=== PATIENT | female | born 1990 | race Caucasian/White ===

== ENCOUNTER 2024-04-10 06:18 | Day surgery (SDC) | payer OTHER ==
[~2024-04-10] VITALS: Ht 152.4 cm; Wt 50.3 kg
[2024-04-10] MEDS ORDERED: MIDAZOLAM 2 MG/2 ML VIAL ONE (07:34)
[2024-04-10] MEDS ORDERED: fentaNYL citrate 0.05 MG/ML VIAL ONE (07:34)
[2024-04-10] MEDS ORDERED: SIMETHICONE 40 MG/0.6 ML ONE (09:36)
[2024-04-10] MEDS ORDERED: SEVOFLURANE 250 ML BTL INH ONE (09:42)
[2024-04-10] MEDS ORDERED: PROPOFOL 200 MG/20 ML VIAL IV ONE (09:42)
[2024-04-10] MEDS ORDERED: ONDANSETRON 4 MG/2 ML VIAL ONE (09:42)
== END 2024-04-10 11:50 | disposition home or self-care (01) ==
LOC: MMU 06:18 → MDS 06:18
PROVIDERS: ATTEND Obstetrics & Gynecology
DX: N84.0 Polyp of corpus uteri (principal); I95.9 Hypotension, unspecified; Z98.891 History of uterine scar from previous surgery; Z79.899 Other long term (current) drug therapy; Z98.890 Other specified postprocedural states
CPT/HCPCS: 36415; 58558; 82948; 86886; 86900; 86901; J1100; J2250; J2405; J2704; J3010; J7030